=== PATIENT | female | born 1990 | race Caucasian/White ===

== ENCOUNTER 2018-01-23 14:11 | Emergency (ER) | payer BC, OTHER ==
[2018-01-23] MEDS ORDERED: DICYCLOMINE HCL 10 MG CAP ONE (15:20)
[2018-01-23] MEDS ORDERED: FAMOTIDINE 20 MG/2 ML VIAL IV ONE (15:21)
[2018-01-23] MEDS ORDERED: NA CHLORIDE 0.9% 1,000 ML ONE (15:21)
[2018-01-23] MEDS ORDERED: ONDANSETRON 4 MG/2 ML VIAL ONE (15:21)
--- NOTE | 2018-01-23 15:25 | RAD REPORT ---
EXAM DESCRIPTION: US - Abdomen Exam Limited - 01/23/2018 3:11 pm CLINICAL HISTORY: Abdominal pain. COMPARISON: None. FINDINGS: The gallbladder wall is not thickened. A gallstone is not seen. A 5 millimeter polyp is p resent The biliary tree is normal caliber. IMPRESSION: 5 millimeter gallbladder polyp
[2018-01-23 15:34] LABS: Absolute Lymphocytes (CBC) 2.5 K/uL (0.7-4.9); Absolute Monocytes 0.6 K/uL (0.1-1.3); Absolute Neutrophil 5.3 K/uL (1.8-8.0); Basophils % 0.3 % (0-1.3); Eosinophils % 1.3 % (0-4.4); Hematocrit 39.9 % (36.0-45.0); MCV 93.6 fL (80-100); MPV 9.2 fL (7.6-11.3); Monocytes % 7.5 % (3.3-12.3); RBC Red Blood Cell Count 4.26 M/uL (3.86-4.86)
[2018-01-23 15:40] LABS: Albumin 3.9 g/dL (3.4-5.0); Bilirubin Direct 0.1 mg/dL (0-0.2); Bilirubin Total 0.2 mg/dL (0.2-1.0); Potassium 3.6 mmol/L (3.5-5.1); Protein, Total 7.4 g/dL (6.4-8.2)
--- NOTE | 2018-01-23 16:42 | EDPHYS ---
Physician Documentation [facility] Name: Tadeo Cobos Age: 27 yrs Sex: Female : 1990 Arrival Date: 01/23/2018 Time: 14:13 Bed 16 Private MD: None, None ED Physician Michele Mukherjee HPI: 01/23 14:45 This 27 yrs old Female presents to ER via Ambulatory with complaints of cp Abdominal Pain. 14:45 The patient presents with abdominal pain in the epigastric area. cp 14:45 Onset: The symptoms/episode began/occurred this morning. cp 14:45 The symptoms do not radiate. Associated signs and symptoms: Pertinent positives: cp nausea, vomiting Sunday that has been controlled with Zofran, Pertinent negatives: constipation, diarrhea, fever, hematemesis. 14:45 The symptoms are described as crampy, squeezing. cp 14:45 Modifying factors: the symptoms are aggravated by pressure. cp Historical: - Allergies: 14:30 ambien; sg - Home Meds: 14:30 Synthroid Oral [Active]; sg - PMHx: 14:30 Hypothyroidism; Cardiomyopathy; sg - PSHx: 14:30 Breast Augmentation x2; Upper GI Corrective sx; sg - Immunization history:: Adult Immunizations up to date. - Social history:: Smoking status: Patient/guardian denies using tobacco. - Ebola Screening: : Patient negative for fever greater than or equal to 101.5 degrees Fahrenheit, and additional compatible Ebola Virus Disease symptoms Patient denies exposure to infectious person Patient denies travel to an Ebola-affected area in the 21 days before illness onset No symptoms or risks identified at this time. ROS: 14:50 Constitutional: Negative for body aches, chills, fever, poor PO intake. cp 14:50 Eyes: Negative for injury, pain, redness, and discharge. cp 14:50 ENT: Negative for drainage from ear(s), ear pain, sore throat, difficulty swallowing, difficulty handling secretions. 14:50 Cardiovascular: Negative for chest pain, edema, palpitations. 14:50 Respiratory: Negative for cough, shortness of breath, wheezing. 14:50 Abdomen/GI: Positive for abdominal pain, nausea, anorexia, of the epigastric area, Negative for vomiting, diarrhea, constipation, dysphagia, black/tarry stool, rectal bleeding. 14:50 Back: Negative for pain at rest, pain with movement, radiated pain. 14:50 : Negative for urinary symptoms. 14:50 Neuro: Negative for altered mental status, headache, weakness. 14:50 All other systems are negative. Exam: 15:02 Constitutional: The patient appears in no acute distress, alert, awake, cp non-diaphoretic, non-toxic, well developed, well nourished, uncomfortable. 15:02 Head/Face: Normocephalic, atraumatic. cp 15:02 Eyes: Periorbital structures: appear normal, Conjunctiva: normal, no exudate, no injection, Sclera: no appreciated abnormality, Lids and lashes: appear normal, bilaterally. 15:02 ENT: External ear(s): are unremarkable, Ear canal(s): are normal, clear, TM's: bulging, is not appreciated, bilaterally, dullness, bilaterally, erythema, is not appreciated, bilaterally, Nose: is normal, Mouth: Lips: moist, Oral mucosa: pink and intact, moist, Posterior pharynx: is normal, airway is patent, no erythema, no exudate. 15:02 Chest/axilla: Inspection: normal, Palpation: is normal, no crepitus, no tenderness. 15:02 Cardiovascular: Rate: bradycardic, Rhythm: regular, Heart sounds: murmur, not appreciated, rub, not appreciated, gallop, not appreciated, Edema: is not appreciated, JVD: is not appreciated. 15:02 Respiratory: the patient does not display signs of respiratory distress, Respirations: normal, no use of accessory muscles, no retractions, no splinting, no tachypnea, labored breathing, is not present, Breath sounds: are clear throughout, no decreased breath sounds, no stridor, no wheezing. 15:02 Abdomen/GI: Inspection: abdomen appears normal, Bowel sounds: active, all quadrants, Palpation: soft, in all quadrants, moderate abdominal tenderness, in the epigastric area, rebound tenderness, is not appreciated, voluntary guarding, is elicited in the epigastric area. 15:02 Back: pain, is absent, ROM is normal, CVA tenderness, is absent. 15:02 Musculoskeletal/extremity: Exam is negative for decreased range of motion, deformity, injury. 15:02 Skin: cellulitis, is not appreciated, no rash present. 15:02 Neuro: Orientation: to person, place \T\ time. Mentation: lucid, able to follow commands, Cerebellar function: is grossly normal, Motor: moves all fours, strength is normal, Sensation: no obvious gross deficits. Vital Signs: 14:30 BP 116 / 82; Pulse 59 MON; Resp 14 S; Temp 98.3(TE); Pulse Ox 100% on R/A; Pain 7/10; sg 15:40 BP 118 / 78; Pulse 53; Resp 16; Pulse Ox 98% on R/A; ph 16:35 BP 112 / 76; Pulse 52; Resp 18; Temp 97.9; Pulse Ox 100% on R/A; ph MDM: 14:25 Patient medically screened. cp 15:00 Differential diagnosis: gastritis, pancreatitis, Peptic Ulcer Disease, Perf. Duodenal cp Ulcer, Perf. Gastric Ulcer, Pyelonephritis, Ureterolithiasis, urinary tract infection. 16:40 Data reviewed: vital signs, nurses notes, lab test result(s), radiologic studies, cp ultrasound. 16:40 Counseling: I had a detailed discussion with the patient and/or guardian regarding: the cp historical points, exam findings, and any diagnostic results supporting the discharge/admit diagnosis, lab results, radiology results, to return to the emergency department if symptoms worsen or persist or if there are any questions or concerns that arise at home. Special discussion: Based on the patient's Hx, exam, and Dx evaluation, there is no indication for emergent surgery or inpatient Tx. It is understood by the patient/guardian that if the Sx's persist or worsen they need to return immediately for re-evaluation. 01/23 14:35 Order name: Amylase, Serum; Complete Time: 15:44 cp 01/23 14:35 Order name: Basic Metabolic Panel; Complete Time: 15:44 cp 01/23 14:35 Order name: CBC with Diff; Complete Time: 15:44 cp 01/23 14:35 Order name: Creatinine for Radiology; Complete Time: 15:44 cp 01/23 14:35 Order name: Hepatic Function; Complete Time: 15:44 cp 01/23 14:35 Order name: Lipase; Complete Time: 15:44 cp 01/23 14:35 Order name: Urine Microscopic Only cp 01/23 14:44 Order name: US Abdomen Limited; Complete Time: 15:44 cp 01/23 15:52 Order name: Urine Dipstick--Ancillary (enter results) 01/23 15:52 Order name: Urine --Ancillary (enter results) 01/23 14:35 Order name: Urine Test (obtain specimen); Complete Time: 15:48 cp 01/23 14:35 Order name: IV Saline Lock; Complete Time: 15:13 cp 01/23 14:35 Order name: Labs collected and sent; Complete Time: 15:13 cp 01/23 14:35 Order name: Urine Dipstick-Ancillary (obtain specimen); Complete Time: 15:48 cp Administered Medications: 15:30 Drug: Pepcid 20 mg Route: IVP; Site: left antecubital; ph 15:30 Drug: NS 0.9% 1000 ml Route: IV; Rate: 1 bolus; Site: left antecubital; ph 15:30 Drug: Zofran 4 mg Route: IVP; Site: left antecubital; ph 15:30 Drug: Bentyl 20 mg Route: PO; ph 17:15 Drug: GI Cocktail without - (Maalox Suspension 30 ml, Lidocaine Liquid 2 % 15 ph ml) Route: PO; Disposition: 01/23/18 16:42 Discharged to Home. Impression: Epigastric pain. - Condition is Stable. - Discharge Instructions: Gastritis, Adult. - Prescriptions for Bentyl 20 mg Oral Tablet - take 1 tablet by ORAL route every 6 hours As needed; 20 tablet. Protonix 40 mg Oral Tablet - take 1 tablet by ORAL route once daily; 30 tablet. Zofran 4 mg Oral Tablet - take 1 tablet by ORAL route every 12 hours As needed; 20 tablet. - Medication Reconciliation Form, Thank You Letter, Antibiotic Education, Prescription Opioid Use form. - Follow up: Saeid Paz MD; When: 2 - 3 days; Reason: Recheck today's complaints. - Problem is new. - Symptoms have improved. Addendum: 01/25/2018 07:24 Co-signature as Attending Physician, Michele Mukherjee MD I agree with the assessment and c grier plan of care. Signatures: Dispatcher [employer] Diego Flores RN RN sg Anderson, Corey, MD MD cha Hall, Patricia RN RN ph Michele Covarrubias PA PA cp Corrections: (The following items were deleted from the chart) 01/23 17:15 16:42 01/23/2018 16:42 Discharged to Home. Impression: Epigastric pain. Condition is ph Stable. Forms are Medication Reconciliation Form, Thank You Letter, Antibiotic Education, Prescription Opioid Use. Follow up: Saeid Paz; When: 2 - 3 days; Reason: Recheck today's complaints. Problem is new. Symptoms have improved. cp 01/24 15:43 01/23 14:35 This 27 yrs old Female presents to ER via Ambulatory with cp complaints of Abdominal Pain. cp
--- NOTE | 2018-01-23 16:42 | ER ---
Nurse's Notes [facility] Name: Tadeo Cobos Age: 27 yrs Sex: Female : 1990 Arrival Date: 01/23/2018 Time: 14:13 Bed 16 Private MD: None, None Diagnosis: Epigastric pain Presentation: 01/23 14:27 Presenting complaint: Patient states: Epigastric cramps and RUQ pain that began this sg morning, had recently finished a z-pack, prednisone and robitussionex for URI, reports nausea and vomiting that began on Sunday, has been controlled with Zofran OTD, until today she took a Promethazine PO, pt reports no change in condition. Transition of care: patient was not received from another setting of care. Onset of symptoms was January 23, 2018. Risk Assessment: Do you want to hurt yourself or someone else? Patient reports no desire to harm self or others. Initial Sepsis Screen: Does the patient meet any 2 criteria? No. Patient's initial sepsis screen is negative. Does the patient have a suspected source of infection? No. Patient's initial sepsis screen is negative. Care prior to arrival: None. 14:27 Method Of Arrival: Ambulatory sg 14:27 Acuity: AMINATA 3 sg Historical: - Allergies: 14:30 ambien; sg - Home Meds: 14:30 Synthroid Oral [Active]; sg - PMHx: 14:30 Hypothyroidism; Cardiomyopathy; sg - PSHx: 14:30 Breast Augmentation x2; Upper GI Corrective sx; sg - Immunization history:: Adult Immunizations up to date. - Social history:: Smoking status: Patient/guardian denies using tobacco. - Ebola Screening: : Patient negative for fever greater than or equal to 101.5 degrees Fahrenheit, and additional compatible Ebola Virus Disease symptoms Patient denies exposure to infectious person Patient denies travel to an Ebola-affected area in the 21 days before illness onset No symptoms or risks identified at this time. Screenin:11 Abuse screen: Denies threats or abuse. Denies injuries from another. Nutritional ph screening: No deficits noted. Tuberculosis screening: No symptoms or risk factors identified. Fall Risk None identified. Assessment: 15:01 General: Appears in no apparent distress. uncomfortable, slender, well groomed, ph Behavior is calm, cooperative, appropriate for age, Denies fever. Pain: Complains of pain in epigastric area Pain radiates to right upper quadrant and back Quality of pain is described as crampy, squeezing. Neuro: Level of Consciousness is awake, alert, obeys commands, Oriented to person, place, time, situation. Cardiovascular: Capillary refill < 3 seconds in bilateral fingers Patient's skin is warm and dry. Respiratory: Airway is patent Respiratory effort is even, unlabored, Respiratory pattern is regular, symmetrical. GI: Abdomen is flat, non-distended, Bowel sounds present X 4 quads. Abd is soft X 4 quads Abdomen is tender to palpation in epigastric area and right upper quadrant. Derm: Skin is intact, is healthy with good turgor, Skin is pink, warm \T\ dry. Musculoskeletal: Circulation, motion, and sensation intact. Range of motion: intact in all extremities. 16:15 Reassessment: Patient appears in no apparent distress at this time. Patient and/or ph family updated on plan of care and expected duration. Pain level reassessed. Patient is alert, oriented x 3, equal unlabored respirations, skin warm/dry/pink. 17:15 Reassessment: Patient appears in no apparent distress at this time. Patient and/or ph family updated on plan of care and expected duration. Pain level reassessed. Patient is alert, oriented x 3, equal unlabored respirations, skin warm/dry/pink. Pt d/c home w/ family Patient denies pain at this time. Patient states symptoms have improved. Vital Signs: 14:30 BP 116 / 82; Pulse 59 MON; Resp 14 S; Temp 98.3(TE); Pulse Ox 100% on R/A; Pain 7/10; sg 15:40 BP 118 / 78; Pulse 53; Resp 16; Pulse Ox 98% on R/A; ph 16:35 BP 112 / 76; Pulse 52; Resp 18; Temp 97.9; Pulse Ox 100% on R/A; ph ED Course: 14:13 Patient arrived in ED. sb2 14:13 None, None is Private Physician. sb2 14:25 Michele Covarrubias PA is PHCP. cp 14:25 Michele Mukherjee MD is Attending Physician. cp 14:29 Triage completed. sg 14:31 Arm band placed on. sg 15:01 Pat Mosquera, RN is Primary Nurse. ph 15:11 US Abdomen Limited In Process Unspecified. EDMS 15:11 Patient has correct armband on for positive identification. Bed in low position. Call ph light in reach. Side rails up X 1. Pulse ox on. NIBP on. Warm blanket given. 15:16 Initial lab(s) drawn, by me, sent to lab. Inserted saline lock: 22 gauge in left dh3 antecubital area, using aseptic technique. Blood collected. 16:38 No provider procedures requiring assistance completed. ph 16:41 Saeid Paz MD is Referral Physician. cp 17:15 IV discontinued, intact, bleeding controlled, No redness/swelling at site. Pressure ph dressing applied. Administered Medications: 15:30 Drug: Pepcid 20 mg Route: IVP; Site: left antecubital; ph 15:30 Drug: NS 0.9% 1000 ml Route: IV; Rate: 1 bolus; Site: left antecubital; ph 15:30 Drug: Zofran 4 mg Route: IVP; Site: left antecubital; ph 15:30 Drug: Bentyl 20 mg Route: PO; ph 17:15 Drug: GI Cocktail without - (Maalox Suspension 30 ml, Lidocaine Liquid 2 % 15 ph ml) Route: PO; Outcome: 16:42 Discharge ordered by MD. cp 17:15 Patient left the ED. ph 17:15 Discharged to home ambulatory, with family. ph 17:15 Condition: good 17:15 Discharge instructions given to patient, Instructed on discharge instructions, follow up and referral plans. medication usage, Demonstrated understanding of instructions, follow-up care, medications, Prescriptions given X 3. Signatures: Dispatcher [employer] EDMS Diego Galvan, RN RN Pat Mosquera, RN RN ph Michele Covarrubias, HARSH PA Latha Cleaning 3 Ofelia Eaton2 Corrections: (The following items were deleted from the chart) 19:31 16:35 BP 112 / 76; Pulse 52bpm; Resp 18bpm; Pulse Ox 100% RA; ph ph
[2018-01-23] MEDS ORDERED: MAGNES/ALUMIN/SIMET 30ML UCUP ONE (16:59)
[2018-01-23] MEDS ORDERED: LIDOCAINE VISCOUS 2% SOLN 15 ML UDC ONE (16:59)
[2018-01-23 17:00] LABS: Urine Bacteria <20 /HPF (<20); Urine Culture Reflex Order NOT NEEDED; Urine RBC <5 /HPF (NONE SEEN)
[2018-01-23 18:36] LABS: Urine Blood NEGATIVE (NEG); Urine Glucose NEGATIVE (NEG); Urine Protein NEGATIVE (NEG)
[2018-01-23] MEDS ORDERED: D50W 25 GM/50 ML SYRINGE IV ONE (19:04)
[2018-01-23] MEDS ORDERED: DEXAMETHASONE 10 MG/ML VIAL ONE (19:19)
== END 2018-01-23 17:15 | disposition home or self-care (01) ==
LOC: ER 14:11
DX: R10.13 Epigastric pain (principal); E03.9 Hypothyroidism, unspecified; Z88.8 Allergy status to other drugs, medicaments and biological substances; Z98.82 Breast implant status
CPT/HCPCS: 36415; 76705; 80048; 80076; 81003; 81015; 81025; 82150; 83690; 85025; 96374; 96375; 99284; J1100; J2405; J7030

== ENCOUNTER 2019-02-17 13:12 | Emergency (ER) | payer BC ==
--- OUTSIDE RECORDS SUMMARY | 2019-02-17 13:14 | XMS REPORT | Clinical Summary ---
:1990 Author Organization [facility] Address [address] [place] [address] Care Team Providers Name Role Phone Asked, No Pcp Primary Care Provider Unavailable Allergies Active Allergy Reactions Severity Noted Date Comments Zolpidem 08/04/2016 Per the patient it kept her awake Medications Medication Sig Dispensed Refills Start End Date Status Date PROAIR HFA 90 INHALE 2 0 Active mcg/actuation PUFFS BY 8 inhaler MOUTH EVERY 4 HOURS NEEDED FOR WHEEZING/COUG HUY levothyroxine 25 mcg on 3 0 Active (SYNTHROID, LEVOXYL) days of the 4 25 mcg tablet week (Mon, Wed, Fri) ivabradine HCl Take 2.5 mg 0 Active (CORLANOR ORAL) by mouth 2 (two) times a day. fludrocortisone Take by 0 Active acetate mouth. (FLUDROCORTISONE ORAL) flecainide TK 1 T PO BID 2 Active (TAMBOCOR) 50 MG 9 tablet ondansetron (ZOFRAN) Take 4 mg by 0 07/01/19 Discontinued 4 MG tablet mouth every 8 19 (Stop Taking at 12 (twelve) Discharge) hours as needed. pantoprazole Take 40 mg by 1 06/10/20 Discontinued (PROTONIX) 40 MG EC mouth daily. 8 18 tablet traMADol (ULTRAM) 50 Take 1 tablet 20 tablet 0 06/08/20 mg tablet (50 mg total) 8 18 by mouth every 6 (six) hours as needed for moderate pain for up to 30 days. acetaminophen Take 325 mg 0 07/01/19 Discontinued (TYLENOL) 325 MG by mouth 19 (Stop Taking at tablet every 6 (six) Discharge) hours as needed for fever. simethicone Chew 1 tablet 90 tablet 0 07/31/19 (MYLICON) 80 MG (80 mg total) 9 19 chewable tablet 3 (three) times a day for 30 days. docusate sodium Take 1 60 capsule 0 07/31/19 (COLACE) 100 MG capsule (100 9 19 capsule mg total) by mouth 2 (two) times a day for 30 days. ibuprofen Take 1 tablet 30 tablet 0 07/15/19 (ADVIL,MOTRIN) 600 (600 mg 9 19 MG tablet total) by mouth every 6 (six) hours as needed for mild pain for up to 14 days. Active Problems Problem Noted Date Menorrhagia with irregular cycle 06/28/2018 Encounters Date Type Specialty Care Team Description 08/14/2018 Telephone Gynecologic [facility] Membreno Oncology MD Harvey 08/13/2018 Office Visit Gynecologic [facility] Mem[facility]o Menorrhagia with Oncology MD Harvey irregular cycle 07/30/2018 Office Visit Gynecologic [facility] Mem[facility]o Menorrhagia with Oncology MD Harvey irregular cycle (Primary Dx) 07/29/2018 Telephone Gynecologic [facility] Membreno Oncology MD Harvey 07/09/2018 Office Visit Gynecologic [facility] Mem[facility]o Menorrhagia with Oncology MD Harvey irregular cycle (Primary Dx) 06/28/2018 Anesthesia Event Obstetrics and Jayy Kelleycaitlyn Gynecology MD Jenifer Wilson Kelly C., FAST FOOD SERVICES MANAGER 06/28/2018 Surgery Obstetrics and [facility] Membreno EXPLORATORY Gynecology MD Harvey LAPAROTOMY, TOTAL ABDOMINAL HYSTERECTOMY, BILATERAL SALPINGECTOMY, APPENDECTOMY 06/28/2018 - Hospital Encounter General Surgery Trin[facility] Membreno Menorrhagia with irregular cycle; 07/01/2018 MD Harvey Dysmenorrhea 06/21/2018 Telephone Gynecologic [facility] Oncology Arielle, RN 06/20/2018 Telephone Obstetrics and [place] Membreno Gynecology MD Harvey 06/19/2018 Telephone Gynecologic Carol Guevara, RN 06/10/2018 Hospital Encounter Radiology [facility] Membreno Pre-op testing MD Harvey 06/10/2018 Pre-Admit Testing Pre-Admission [facility] Membreno Pre-op testing Appointment Testing MD Harvey 06/10/2018 Clinical Support Gynecologic Pre-op testing Oncology (Primary Dx) 06/10/2018 Telephone Gynecologic [facility] Membreno Oncology MD Harvey 06/03/2018 Telephone Gynecologic [facility] Arielle, RN 05/20/2018 Telephone Gynecologic [facility] Arielle, RN 05/09/2018 Office Visit Gynecologic [facility] Membreno Menorrhagia with Oncology MD Harvey irregular cycle 04/30/2018 Office Visit Obstetrics and Per Medina Pelvic pain (Primary Dx); Gynecology MD Meera Adenomyosis 04/30/2018 Telephone Obstetrics and [place] Membreno Gynecology MD Harvey 04/23/2018 Telephone Obstetrics and Inessa Hill Gynecology MA 04/16/2018 Office Visit Obstetrics Per Hill Pelvic pain (Primary Dx); Gynecology MD Meera Dysmenorrhea; Cervical cancer screening 04/16/2018 Telephone Obstetrics Per Hill Gynecology MD Meera after 02/16/2018 Family History Medical History Relation Name Comments Endometriosis Maternal Grandmother Endometriosis Mother Fibrocystic breast disease Mother Endometriosis Paternal Aunt Relation Name Status Comments Maternal Grandmother Mother Paternal Aunt Social History Tobacco Use Types Packs/Day Years Used Date Never Smoker Smokeless Tobacco: Never Used Tobacco Cessation: Counseling Given: No Alcohol Use Drinks/Week oz/Week Comments Yes 5xs a year Sex Assigned at Date Recorded Not on file Job Start Date Occupation Industry Not on file Not on file Not on file Travel History Travel Start Travel End No recent travel history available. Last Filed Vital Signs Vital Sign Reading Time Taken Comments Blood Pressure 109/70 08/13/2018 11:37 AM DIFFERENTIAL SPECIALIST Pulse 63 08/13/2018 11:37 AM DIFFERENTIAL SPECIALIST Temperature 36.8 C (98.2 F) 07/01/2018 7:48 AM DIFFERENTIAL SPECIALIST Respiratory Rate 18 07/01/2018 9:34 AM DIFFERENTIAL SPECIALIST Oxygen Saturation 98% 07/01/2018 7:48 AM DIFFERENTIAL SPECIALIST Inhaled Oxygen Concentration - - Weight 47.6 kg (105 lb) 08/13/2018 11:37 AM DIFFERENTIAL SPECIALIST Height 160 cm (5' 3") 08/13/2018 11:37 AM DIFFERENTIAL SPECIALIST Body Mass Index 18.6 08/13/2018 11:37 AM DIFFERENTIAL SPECIALIST Plan of Treatment Date Type Specialty Care Team Description 02/26/2019 Office Visit Obstetrics and Gynecology Per Medina MD [address] [facility] [address] [place], [place] [id number] Health Maintenance Due Date Last Done Comments INFLUENZA VACCINE 01/23/2019 CERVICAL CANCER SCREENING 06/28/2021 06/28/2018, 04/16/2018 Procedures Procedure Name Priority Date/Time Associated Diagnosis Comments NJ AN ELECTIVE Routine 07/18/2018 11:34 AM ENDOTRACHEAL AIRWAY DIFFERENTIAL SPECIALIST Procedure Note - Bhavna Kelley MD - 07/18/2018 11:34 AM DIFFERENTIAL SPECIALIST Airway Performed by: Bhavna Kelley MD Authorized by: Bhavna Kelley MD Location: OR Urgency: Elective Difficult Airway: No Preoxygenated with 100% O2: Yes C-spine Precautions Maintained Throughout: Yes Mask Ventilation: Easy mask Final Airway Type: Endotracheal airway Final Endotracheal Airway: ETT Cuffed: Yes Technique Used: Direct laryngoscopy Devices/Methods Used in Placement: Intubating stylet Insertion Site: Oral Blade Type: Cardona Laryngoscope Blade/Videolaryngoscope Blade Size: 2 ETT Size (mm): 7.0 Cuff at minimum occlusion pressure: Yes Measured from: Lips Placement Verified by: CO2 detection, direct visualization and equal breath sounds Laryngoscopic view: Grade I - full view of glottis Rapid Sequence Induction (RSI): No Modified RSI: No Number of Attempts at Approach: 1 ESTIMATED GFR Routine 06/29/2018 4:48 AM DIFFERENTIAL SPECIALIST BASIC METABOLIC PANEL Routine 06/29/2018 4:48 AM DIFFERENTIAL SPECIALIST HEMOGLOBIN & HEMATOCRIT Routine 06/29/2018 4:48 AM DIFFERENTIAL SPECIALIST CYTOLOGY Routine 06/28/2018 3:00 PM DIFFERENTIAL SPECIALIST Results for this (NON-GYNECOLOGICAL) REQUEST procedure are in the results section. NJ AN ELECTIVE ENDOTRACHEAL Routine 06/28/2018 2:31 PM DIFFERENTIAL SPECIALIST AIRWAY Procedure Note - Jose Sellers CRNA - 06/28/2018 2:31 PM DIFFERENTIAL SPECIALIST ANESTHESIA INTUBATION Date/Time: 06/28/2018 1:54 PM Performed by: Jose Sellers CRNA Authorized by: Bhavna Kelley MD Location: OR Urgency: Elective Difficult Airway: No Resident/FAST FOOD SERVICES MANAGER/AA: Jose Sellers CRNA Performed by: resident/FAST FOOD SERVICES MANAGER/AA Preoxygenated with 100% O2: Yes Mask Ventilation: Easy mask Final Airway Type: Endotracheal airway Final Endotracheal Airway: ETT Cuffed: Yes Technique Used: Direct laryngoscopy Devices/Methods Used in Placement: Intubating stylet Insertion Site: Oral Blade Type: Narinder Laryngoscope Blade/Videolaryngoscope Blade Size: 3 ETT Size (mm): 7.0 Cuff at minimum occlusion pressure: Yes Measured from: Teeth ETT to Teeth (cm): 19 Placement Verified by: CO2 detection, direct visualization and equal breath sounds Laryngoscopic view: Grade I - full view of glottis Rapid Sequence Induction (RSI): No Modified RSI: No Number of Attempts at Approach: 1 LAPAROTOMY, 06/28/2018 1:44 Menorrhagia with EXPLORATORY PM DIFFERENTIAL SPECIALIST irregular cycle Dysmenorrhea SURGICAL PATHOLOGY Routine 06/28/2018 9:19 Results for REQUEST AM DIFFERENTIAL SPECIALIST this procedure are in the results section. ECG PRE/POST OP Routine 06/10/2018 5:14 Pre-op testing Results for PM DIFFERENTIAL SPECIALIST this procedure are in the results section. ESTIMATED GFR Routine 06/10/2018 4:53 Results for PM DIFFERENTIAL SPECIALIST this procedure are in the results section. HC COMPLETE BLD COUNT Routine 06/10/2018 4:53 Pre-op testing Results for W/AUTO DIFF PM DIFFERENTIAL SPECIALIST this procedure are in the results section. COMPREHENSIVE Routine 06/10/2018 4:53 Pre-op testing Results for METABOLIC PANEL PM DIFFERENTIAL SPECIALIST this procedure are in the results section. PARTIAL Routine 06/10/2018 4:53 Pre-op testing Results for THROMBOPLASTIN TIME PM DIFFERENTIAL SPECIALIST this procedure (PTT) are in the results section. PROTHROMBIN TIME WITH Routine 06/10/2018 4:53 Pre-op testing Results for INR PM DIFFERENTIAL SPECIALIST this procedure are in the results section. TYPE AND SCREEN Routine 06/10/2018 4:53 Pre-op testing Results for PM DIFFERENTIAL SPECIALIST this procedure are in the results section. HCG QUANTITATIVE, Routine 06/10/2018 4:53 Pre-op testing Results for SERUM PM DIFFERENTIAL SPECIALIST this procedure are in the results section. XR CHEST 2 VW Routine 06/10/2018 4:34 Pre-op testing Results for PM DIFFERENTIAL SPECIALIST this procedure are in the results section. CHLAMYDIA/N. Routine 04/16/2018 2:38 Results for GONORRHOEAE RNA, TMA PM CDT this procedure are in the results section. THINPREP TIS PAP Routine 04/16/2018 2:38 Results for REFLEX HPV MRNA E6/E7 PM CDT this procedure are in the results section. PAP W/AGE BASED Routine 04/16/2018 2:38 Pelvic pain Results for SCREENING PLUS CT/NG PM CDT Dysmenorrhea this procedure Cervical cancer screening are in the results section. URINALYSIS, AUTOMATED Routine 04/16/2018 2:34 Pelvic pain Results for WITH MICROSCOPY PM CDT Dysmenorrhea this procedure Cervical cancer screening are in the results section. URINE CULTURE Routine 04/16/2018 2:34 Pelvic pain Results for PM CDT Dysmenorrhea this procedure Cervical cancer screening are in the results section. after 02/16/2018 Results Estimated GFR (06/29/2018 4:48 AM DIFFERENTIAL SPECIALIST)Only the most recent of2 resultswithin the time period is included. Pathologist [facility] Estimated GFR >=90 mL/min/1.73 [facility] Comment: m2 HOSPITAL CatergoryUnitsInterpretation G1 >=90 Normal or high G2 60-89Mildly decreased [id number] to moderately decreased J6x18-43Vuexbkemzp to severely decreased G4 15-29Severely decreased G5 <15Kidney failure The eGFR was calculated using the Chronic Kidney Disease Epidemiology Collaboration (CKD-EPI) equation. Interpretation is based on recommendations of the National Kidney Foundation-Kidney Disease Outcomes Quality Initiative (NKF-KDOQI) published in 2014. Specimen Plasma specimen Performing Organization Address City/[facility] Centercode Phone Number [facility] DEPARTMENT OF PATHOLOGY AND [address] [place] [address] Hemoglobin & hematocrit (06/29/2018 4:48 AM DIFFERENTIAL SPECIALIST) Pathologist [facility] HGB 12.4 12.0 - 16.0 g/dL [facility] HCT 38.5 37.0 - 47.0 % [facility] Specimen Blood Performing Organization Address City/[facility]/Zipcode Phone Number [facility] DEPARTMENT OF PATHOLOGY AND [address] [place] [phone] Basic metabolic panel (06/29/2018 4:48 AM DIFFERENTIAL SPECIALIST) Pathologist [facility] Sodium 130 (L) 135 - 148 mEq/L [facility] Potassium 4.3 3.5 - 5.0 mEq/L [facility] Chloride 97 (L) 98 - 112 mEq/L [facility] CO2 20 (L) 24 - 31 mEq/L [facility] Anion gap 13@ANIO 7 - 15 mEq/L [facility] BUN 11 6 - 20 mg/dL [facility] Creatinine 0.70 0.50 - 0.90 mg/dL [facility] Glucose 131 (H) 65 - 99 mg/dL [facility] Calcium 8.8 8.3 - 10.2 mg/dL [facility] Specimen Plasma specimen Performing Organization Address City/[facility] Centercode Phone Number [facility] DEPARTMENT OF PATHOLOGY AND [address] [place] [phone] GENOMIC MEDICINE [address] [address] Cytology (non-gynecological) request (06/28/2018 3:00 PM DIFFERENTIAL SPECIALIST) [facility] DEPARTMENT OF PATHOLOGY AND GENOMIC MEDICINE Cytology See link below [facility] DEPARTMENT OF (non-gynecological) for PDF Lab PATHOLOGY AND report Report GENOMIC MEDICINE Result status This is Final [facility] DEPARTMENT OF Report for PATHOLOGY AND [id number] GENOMIC MEDICINE Specimen Performing Organization Address [facility] Phone Number [facility] DEPARTMENT OF PATHOLOGY AND [address] [place] [address] GENOMIC MEDICINE Surgical pathology request (06/28/2018 9:19 AM DIFFERENTIAL SPECIALIST) [facility] DEPARTMENT OF PATHOLOGY AND GENOMIC MEDICINE Surgical pathology See link below [facility] DEPARTMENT OF report for PDF Lab PATHOLOGY AND Report GENOMIC MEDICINE Result status This is Final [facility] DEPARTMENT OF Report for PATHOLOGY AND [id number] GENOMIC MEDICINE Specimen Performing Organization Address [facility] Centercode Phone Number [facility] DEPARTMENT OF PATHOLOGY AND [address] [place] [address] GENOMIC MEDICINE ECG Pre/Post Op (06/10/2018 5:14 PM DIFFERENTIAL SPECIALIST) Ventricular rate 48 [facility] Atrial rate 48 [facility] NJ interval 114 [facility] QRSD interval 82 [facility] QT interval 426 [facility] QTC interval 380 [facility] MUSE P axis 1 -21 [facility] MUSE QRS axis 1 15 [facility] T wave axis 54 [facility] MUSE EKG impression Marked sinus [facility] MUSE bradycardia with sinus arrhythmia-Cannot rule out Anterior infarct , age undetermined-Abnormal ECG-No previous ECGs available-Electronicall y Signed By Jam Ny MD ([id number]) on 06/11/2018 7:29:17 PM Specimen Narrative Performed At Performing Organization Address City/[facility]/Zipcode Phone Number [facility] MUSE [address] [place] [phone] Partial thromboplastin time, activated (06/10/2018 4:53 PM DIFFERENTIAL SPECIALIST) Pathologist [facility] PTT 27.6 23.0 - 36.0 [facility] Comment: [facility] PTT therapeutic range for unfractionated heparin is 61.0-112.0 seconds which corresponds to Anti-Xa 0.3-0.7 U/ml. Specimen Blood Performing Organization Address City/[facility]/Zipcode Phone Number [facility] DEPARTMENT OF PATHOLOGY AND [address] [place] [phone] Prothrombin time with INR (06/10/2018 4:53 PM DIFFERENTIAL SPECIALIST) [facility] Prothrombin time 13.6 11.5 - 14.5 [facility] INR 1.1 MANY Comment: YARSANI The International Normalized Ratio (INR) is a therapeutic HOSPITAL monitoring tool for patients who are stable on oral anticoagulant therapy. An INR of 2.0-3.0 is suggested for deep vein thrombosis/pulmonary embolism. Specimen Blood Performing Organization Address [facility] Centercony Phone Number [facility] DEPARTMENT OF PATHOLOGY AND [address] [place] [phone] [place] [phone] CBC with platelet and differential (06/10/2018 4:53 PM DIFFERENTIAL SPECIALIST) [facility] WBC 7.29 4.50 - 11.00 [facility] RBC 4.18 (L) 4.20 - 5.50 [facility] HGB 13.1 12.0 - 16.0 [facility] g/dL [facility] HCT 40.6 37.0 - 47.0 % [facility] MCV 97.1 82.0 - 100.0 [facility] MCH 31.3 27.0 - 34.[address] [facility] MCHC 32.3 31.0 - 37.0 [facility] g/dL [facility] RDW - SD 43.9 37.0 - 55.[address] [facility] MPV 11.5 8.8 - 13.[address] [facility] Platelet count 291 150 - 400 k/uL [facility] Nucleated RBC 0.00 /[address] [facility] Neutrophils 60.0 39.0 - 69.0 % [facility] Lymphocytes 32.4 25.0 - 45.0 % [facility] Monocytes 5.3 0.0 - 10.0 % [facility] Eosinophils 1.6 0.0 - 5.0 % [facility] Basophils 0.4 0.0 - 1.0 % [facility] Immature granulocytes 0.3Comment: 0.0 - 1.0 % [facility] "[facility] granulocytes" (promyelocytes , myelocytes, metamyelocytes ) Specimen Blood Performing Organization Address City/State/Zipcode Phone Number [facility] DEPARTMENT OF PATHOLOGY AND [address] [place] [address] Type and screen (06/10/2018 4:53 PM DIFFERENTIAL SPECIALIST) Pathologist [facility] ABO grouping B [facility] Rh type POS [facility] Antibody screen (gel) NEG [facility] Specimen Blood Performing Organization Address City/[facility]/Zipcode Phone Number [facility] DEPARTMENT OF PATHOLOGY AND [address] [place], [place] [phone] hCG quantitative, serum (06/10/2018 4:53 PM DIFFERENTIAL SPECIALIST) Pathologist [facility] hCG quantitative, <1 0 - 5 mIU/mL [facility] serum Comment: HOSPITAL Reference range for HCG Quant applies to males and non- females. Post Menopausal 0.0 - 8.1 mIU/mL Specimen Plasma specimen Performing Organization Address City/[facility]/Zipcode Phone Number [facility] DEPARTMENT OF PATHOLOGY AND [address] [place], [place] [phone] Comprehensive metabolic panel (06/10/2018 4:53 PM DIFFERENTIAL SPECIALIST) Pathologist [facility] Sodium 140 135 - 148 [facility] mEq/L [facility] Potassium 3.6 3.5 - 5.0 [facility] mEq/L [facility] Chloride 103 98 - 112 mEq/L [facility] CO2 22 (L) 24 - 31 mEq/L [facility] Anion gap 15@ANIO 7 - 15 mEq/L [facility] BUN 15 6 - 20 mg/dL [facility] Creatinine 0.80 0.50 - 0.90 [facility] mg/dL HOSPITAL Glucose 82 65 - 99 mg/dL [facility] Calcium 9.6 8.3 - 10.2 [facility] mg/dL [facility] Protein 7.6 6.3 - 8.3 g/dL [facility] Comment: HOSPITAL 4.6-7.0 g/dL 1 week 4.4-7.6 g/dL 7 months-1year5.1-7.3 g/dL 1-2 years5.6-7.5 g/dL >3 years6.0-8.0 g/dL 18-150 6.3-8.3 g/dL Albumin 4.1 3.5 - 5.0 g/dL [facility] A/G ratio 1.2 0.7 - 3.[address] [facility] Alkaline phosphatase 45 35 - 104 U/L [facility] AST 21 10 - 35 U/L [facility] ALT 10 5 - 50 U/L [facility] Total bilirubin 0.4 0.0 - 1.2 [facility] mg/dL [facility] Specimen Plasma specimen Performing Organization Address City/State/Zipcode Phone Number [facility] DEPARTMENT OF PATHOLOGY AND [address] [place] [address] GENOMIC MEDICINE [address] [address] XR Chest 2 Vw (06/10/2018 4:34 PM DIFFERENTIAL SPECIALIST) Specimen Narrative Performed At EXAMINATION:XR CHEST 2 VW RADIANT CLINICAL HISTORY:Z01.818 Encounter for other preprocedural examination, pre op IMPRESSION: Heart and mediastinum are normal. There is no acute infiltrate or effusion. Bones are osteopenic. There are bilateral breast implants. No significant change from June 28, 2010. [facility]-[id number] Procedure Note Interface, Radiology Results Incoming - 06/10/2018 4:42 PM DIFFERENTIAL SPECIALIST EXAMINATION: XR CHEST 2 VW CLINICAL HISTORY: Z01.818 Encounter for other preprocedural examination, pre op IMPRESSION: Heart and mediastinum are normal. There is no acute infiltrate or effusion. Bones are osteopenic. There are bilateral breast implants. No significant change from June 28, 2010. [facility]-[id number] Performing Organization Address City/[facility]/Zipcode Phone Number [facility] [address] [place] [address] PAP W/AGE BASED SCREENING PLUS CT/NG (04/16/2018 2:38 PM CDT) Comment [facility] Comment: DIAGNOSTICS-NANY II This order for age-based cervical cancer and STI screening follows ACOG guidelines(PB 168, 140, ALU090). See individual assays for performing site location. Specimen Swab Resulting Agency Comment Performing Organization Information: Site ID: [id number] Name: [facility] Address: [address] [place] [id number] Director: Dr. Jim Diaz Performing Organization Address [facility] Centercony Phone Number [facility] [employer] [place] [address] CHLAMYDIA/N. GONORRHOEAE RNA, TMA (04/16/2018 2:38 PM CDT) Chlamydia NOT DETECTED NOT DETECTED [facility] trachomatis RNA, MANY TMA Neisseria NOT DETECTED NOT DETECTED [facility] gonorrhoeae RNA, MANY TMA (Always message) [employer] Comment: MANY This test was performed using the APTIMA COMBO2 Assay ([employer] The analytical performance characteristics of this assay, when used to test SurePath specimens have been determined by [facility]. Specimen Resulting Agency Comment Performing Organization Information: Site ID: [id number] Name: [facility] Address: [address] [place] [address] Director: Sharon Osuna Performing Organization Address [facility] Centercode Phone Number [employer] [address] [address] THINPREP TIS PAP REFLEX HPV mRNA E6/E7 (04/16/2018 2:38 PM CDT) Clinical information None given [facility] MANY Date of last menstrual NONE GIVEN [facility] period [facility] MANY Prev. pap: NONE GIVEN [facility] MANY Prev. bx: NONE GIVEN [facility] MANY Source None given [facility] MANY Statement of adequacy [facility] Comment: DIAGNOSTICS Satisfactory for evaluation. MANY Endocervical/transformation zone component present. Age and/or menstrual status not provided Interpretation/result: Comment: Negative for [facility] intraepithelial [facility] lesion or malignancy. MANY Comment [facility] Comment: DIAGNOSTICS This Pap test has been evaluated with computer [employer] assisted technology. [employer] Commerce Architect [facility] Comment: DIAGNOSTICS AMT, CT(ASCP) MANY CT screening location: [address], [place] [id number] Comment [facility] Comment: DIAGNOSTICS EXPLANATORY NOTE: MANY The Pap is a screening test for cervical cancer. It is not a diagnostic test and is subject to false negative and false positive results. It is most reliable when a satisfactory sample, regularly obtained, is submitted with relevant clinical findings and history, and when the Pap result is evaluated along with historic and current clinical information. Specimen Resulting Agency Comment Performing Organization Information: Site ID: [id number] Name: [facility] Address: [address] [place] [phone] Director: Sharon Osuna Performing Organization Address City/State/Zipcode Phone Number Dmailer [place] [phone] Urinalysis, automated with microscopy (04/16/2018 2:34 PM CDT) Color, UA YELLOW YELLOW [facility] MANY Appearance CLEAR CLEAR [facility] MANY Specific gravity, 1.020 1.001 - 1.035 [facility] urine MANY pH, urine 6.0 5.0 - 8.0 [facility] MANY Glucose, urine NEGATIVE NEGATIVE [facility] MANY Bilirubin, UA NEGATIVE NEGATIVE [facility] MANY Ketones, UA NEGATIVE NEGATIVE [facility] MANY Occult blood, urine NEGATIVE NEGATIVE [facility] MANY Protein, UA NEGATIVE NEGATIVE [facility] MANY Nitrite, UA NEGATIVE NEGATIVE [facility] MANY Leukocyte esterase, NEGATIVE NEGATIVE [facility] UA MANY WBC, UA NONE SEEN < OR=5 /HPF [facility] MANY RBC, UA NONE SEEN < OR=2 /HPF [facility] MANY Squamous epithelial NONE SEEN < OR=5 /HPF [facility] cells, UA MANY Bacteria, UA NONE SEEN NONE SEEN /HPF [facility] MANY Hyaline casts, UA NONE SEEN NONE SEEN /LPF [facility] MANY Specimen Urine Resulting Agency Comment Performing Organization Information: Site ID: [id number] Name: [facility] Address: [address] [place] [phone] Director: Sharon Osuna Performing Organization Address City/State/[facility] [place] [address] Urine culture (04/16/2018 2:34 PM CDT) Urine culture SEE NOTE [facility] Comment: MARY KAY CULTURE, URINE, ROUTINE MICRO NUMBER:[id number] TEST STATUS: FINAL SPECIMEN SOURCE: URINE SPECIMEN QUALITY:ADEQUATE RESULT:No Growth Specimen Urine Resulting Agency Comment Performing Organization Information: Site ID: [id number] Name: [facility] Address: [address] [place] [phone] Director: Sharon Osuna Performing Organization Address City/State/[facility] Phone Number ANDREI [facility] MANY [address] [place] [phone] after 02/16/2018 Advance Directives For more information, please contact: [phone] Type Date Recorded 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
[2019-02-17] MEDS ORDERED: KETOROLAC 30 MG/ML INJ ONE (14:09)
[2019-02-17 14:15] LABS: Absolute Lymphocytes (CBC) 2.3 K/uL (0.7-4.9); Basophils % 0.4 % (0-1.3); Hematocrit 41.5 % (36.0-45.0); Lymphocytes % 27.5 % (15.3-44.8); RBC Red Blood Cell Count 4.47 M/uL (3.86-4.86)
[2019-02-17 14:28] LABS: Urine Blood NEGATIVE (NEG); Urine Glucose NEGATIVE (NEG); Urine Protein NEGATIVE (NEG); Urine Specific Gravity 1.025 (1.005-1.030)
[2019-02-17 14:28] LABS: Urine Bacteria 20-50 /HPF (<20); Urine Culture Reflex Order REFLEXED; Urine Mucus 1+ /HPF (NONE SEEN); Urine RBC <5 /HPF (NONE SEEN)
[2019-02-17 14:31] LABS: Albumin 4.1 g/dL (3.4-5.0); Bilirubin Direct 0.1 mg/dL (0-0.2); Bilirubin Total 0.6 mg/dL (0.2-1.0); Potassium 3.5 mmol/L (3.5-5.1); Protein, Total 7.9 g/dL (6.4-8.2)
--- NOTE | 2019-02-17 15:12 | RAD REPORT ---
EXAM DESCRIPTION: CT - Abdomen Pelvis W Contrast - 02/17/2019 2:50 pm CLINICAL HISTORY: ABD PAIN COMPARISON: CT study March 2018 TECHNIQUE: Biphasic, helical CT imaging of the abdomen and pelvis was performed following 100 ml non -ionic IV contrast. Oral contrast was given. All CT scans are performed using dose optimization technique as appropriate and may include automated exposure control or mA/KV adjustment according to patient size. FINDINGS: No suspicious findings in the lung bases. The liver, spleen, and pancreas show no suspicious findings. Gallbladder and biliary tree are also wi thout suspicious finding. Symmetric renal function is seen with no hydronephrosis or suspicious renal mass. No pyelonephritis o r acute parenchymal process. No bladder abnormalities. No adrenal abnormalities. Pelvic floor phlebol iths are present. No dilated bowel loops or bowel wall thickening. Appendix is not well visualized. No indirect evidenc e for appendicitis. No free air or pneumatosis. Small quantity of free fluid is present in the depend ent portion of the pelvis. This is within physiologic limits. A small involuting right ovarian cyst i s present. Left ovary is unremarkable. Uterus has been removed. No hernia, mass or bulky lymphadenop athy. No suspicious bony findings. IMPRESSION: Contrast-enhanced CT abdomen and pelvis imaging shows no emergent finding. Nonacute findings detailed in the body of the report.
--- NOTE | 2019-02-17 16:41 | RAD REPORT ---
EXAM DESCRIPTION: US - Pelvis Complete - 02/17/2019 4:27 pm CLINICAL HISTORY: Abdominal pain, vaginal bleeding. Preliminary findings provided at the time of the study. COMPARISON: CT study February 17 TECHNIQUE: Transabdominal pelvic sonography was performed. FINDINGS: Uterus is absent. Left ovary shows normal blood flow within the stroma. No dominant solid or cystic left ovarian or left adnexal finding. No abnormal fluid. Right ovary shows several small follicles. The suspected involuting cyst on the CT study is not clear ly seen and may be paraovarian and partially obscured by bowel. A worrisome adnexal finding is not richter spected. IMPRESSION: Hysterectomy change with no left ovarian or left adnexal abnormality. No dominant right ovarian or right adnexal process. The suspected involuting cyst on CT imaging is no t clearly defined sonographically. Significant right adnexal process is not suspected.
--- NOTE | 2019-02-17 16:50 | ER ---
Nurse's Notes [facility] Name: Tadeo oCbos Age: 28 yrs Sex: Female : 1990 Arrival Date: 02/17/2019 Time: 13:15 Bed 20 Private MD: Diagnosis: Pelvic and perineal pain Presentation: 02/17 13:26 Presenting complaint: Patient states: lower abd pain X 2-3 weeks, radiates to low back, iw dull aching pressure, UA this morning was negative at clinic, denies vomiting or diarrhea. Transition of care: patient was not received from another setting of care. Onset of symptoms was February 03, 2019. Risk Assessment: Do you want to hurt yourself or someone else? Patient reports no desire to harm self or others. Initial Sepsis Screen: Does the patient meet any 2 criteria? No. Patient's initial sepsis screen is negative. Does the patient have a suspected source of infection? No. Patient's initial sepsis screen is negative. Care prior to arrival: None. 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 - Social history:: Smoking status: Patient/guardian denies using tobacco. - Ebola Screening: : Patient negative for fever greater than or equal to 101.5 degrees Fahrenheit, and additional compatible Ebola Virus Disease symptoms Patient denies exposure to infectious person Patient denies travel to an Ebola-affected area in the 21 days before illness onset No symptoms or risks identified at this time. Screenin:13 Abuse screen: Denies threats or abuse. Denies injuries from another. Nutritional jl7 screening: No deficits noted. Tuberculosis screening: No symptoms or risk factors identified. Fall Risk IV access (20 points). Total Carlos Fall Scale indicates No Risk (0-24 pts). Assessment: 14:06 General: Appears in no apparent distress. uncomfortable, Behavior is calm, cooperative, jl7 appropriate for age. Pain: Complains of pain in low back area, right lower quadrant and left lower quadrant. Neuro: Level of Consciousness is awake, alert, obeys commands, Oriented to person, place, time, situation. Cardiovascular: Patient's skin is warm and dry. Respiratory: Airway is patent Respiratory effort is even, unlabored, Respiratory pattern is regular, symmetrical. 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 Derm: Skin is pink, warm \T\ dry. 15:00 Reassessment: Patient appears in no apparent distress at this time. Patient and/or jl7 family updated on plan of care and expected duration. Pain level reassessed. Patient is alert, oriented x 3, equal unlabored respirations, skin warm/dry/pink. Patient states feeling better. Patient states symptoms have improved. 16:00 Reassessment: Patient appears in no apparent distress at this time. No changes from jl7 previously documented assessment. Patient and/or family updated on plan of care and expected duration. Pain level reassessed. Patient is alert, oriented x 3, equal unlabored respirations, skin warm/dry/pink. Vital Signs: 13:29 BP 132 / 85; Pulse 74; Resp 16; Temp 99.4; Pulse Ox 100% on R/A; Weight 48.08 kg; iw Height 5 ft. 3 in. (160.02 cm); Pain 5/10; 15:24 BP 119 / 72; Pulse 52; Resp 14; Temp 97.2(TE); Pulse Ox 100% on R/A; mh5 17:00 BP 110 / 75; Pulse 56; Resp 16 S; Pulse Ox 100% on R/A; jl7 13:29 Body Mass Index 18.78 (48.08 kg, 160.02 cm) ED Course: 13:15 Patient arrived in ED. mr 13:28 Triage completed. iw 13:29 Arm band placed on. iw 13:33 Dequan Yin MD is Attending Physician. gs 13:47 Rima Mcleod RN is Primary Nurse. jl7 14:13 Patient has correct armband on for positive identification. Bed in low position. Call jl7 light in reach. Side rails up X 1. Pulse ox on. NIBP on. Warm blanket given. 14:13 Initial lab(s) drawn, by me, sent to lab. Urine collected: clean catch specimen, clear. jl7 Inserted saline lock: 22 gauge in left antecubital area, using aseptic technique. Blood collected. 14:54 CT Abd/Pelvis - IV Contrast Only In Process Unspecified. EDMS 16:32 US Pelvis Complete In Process Unspecified. EDMS 16:59 No provider procedures requiring assistance completed. IV discontinued, intact, jl7 bleeding controlled, No redness/swelling at site. Pressure dressing applied. Administered Medications: 14:30 Drug: TORadol - Ketorolac 15 mg Route: IVP; Site: right antecubital; jl7 15:00 Follow up: Response: No adverse reaction; Pain is decreased jl7 Outcome: 16:48 Discharge ordered by MD. greene 16:59 Discharged to home ambulatory. jl7 16:59 Condition: stable 16:59 Discharge instructions given to patient, Instructed on discharge instructions, follow up and referral plans. Demonstrated understanding of instructions, follow-up care. 17:03 Patient left the ED. jl7 Signatures: Dispatcher [employer] Chantal Brown Irene, Kaylie Beauchamp RN [facility] Rima Mcleod RN RN jl7 Dequan Yin MD MD gs
--- NOTE | 2019-02-17 16:50 | EDPHYS ---
Physician Documentation [facility] Name: Tadeo Cobos Age: 28 yrs Sex: Female : 1990 Arrival Date: 02/17/2019 Time: 13:15 Bed 20 Private MD: ED Physician Dequan Yin HPI: 02/17 17:07 This 28 yrs old Female presents to ER via Ambulatory with complaints of gs Abdominal Pain, Back Pain. 17:07 The patient presents with abdominal pain in the lower abdomen. Onset: The gs symptoms/episode began/occurred 2 week(s) ago. 17:07 The symptoms radiate to back. Associated signs and symptoms: Pertinent negatives: gs nausea and vomiting. The symptoms are described as crampy, dull. Modifying factors: The symptoms are alleviated by nothing, the symptoms are aggravated by nothing. Severity of pain: At its worst the pain was moderate in the emergency department the pain has improved mildly. The patient has experienced similar episodes in the past, a few times. The patient has not recently seen a physician. 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 - Social history:: Smoking status: Patient/guardian denies using tobacco. - Ebola Screening: : Patient negative for fever greater than or equal to 101.5 degrees Fahrenheit, and additional compatible Ebola Virus Disease symptoms Patient denies exposure to infectious person Patient denies travel to an Ebola-affected area in the 21 days before illness onset No symptoms or risks identified at this time. ROS: 17:07 All other systems are negative. gs 17:07 Cardiovascular: Negative for chest pain. gs 17:07 Respiratory: Negative for shortness of breath. 17:07 : Negative for difficulty urinating, vaginal discharge. Exam: 17:07 Head/Face: Normocephalic, atraumatic. Eyes: Pupils equal round and reactive to light, gs extra-ocular motions intact. Lids and lashes normal. Conjunctiva and sclera are non-icteric and not injected. Cornea within normal limits. Periorbital areas with no swelling, redness, or edema. ENT: Nares patent. No nasal discharge, no septal abnormalities noted. Tympanic membranes are normal and external auditory canals are clear. Oropharynx with no redness, swelling, or masses, exudates, or evidence of obstruction, uvula midline. Mucous membranes moist. Neck: Trachea midline, no thyromegaly or masses palpated, and no cervical lymphadenopathy. Supple, full range of motion without nuchal rigidity, or vertebral point tenderness. No Meningismus. Chest/axilla: Normal chest wall appearance and motion. Nontender with no deformity. No lesions are appreciated. Cardiovascular: Regular rate and rhythm with a normal S1 and S2. No gallops, murmurs, or rubs. Normal PMI, no JVD. No pulse deficits. Respiratory: Lungs have equal breath sounds bilaterally, clear to auscultation and percussion. No rales, rhonchi or wheezes noted. No increased work of breathing, no retractions or nasal flaring. Skin: Warm, dry with normal turgor. Normal color with no rashes, no lesions, and no evidence of cellulitis. MS/ Extremity: Pulses equal, no cyanosis. Neurovascular intact. Full, normal range of motion. Neuro: Awake and alert, GCS 15, oriented to person, place, time, and situation. Cranial nerves II-XII grossly intact. Motor strength 5/5 in all extremities. Sensory grossly intact. Cerebellar exam normal. Normal gait. 17:07 Constitutional: The patient appears alert, awake. 17:07 Abdomen/GI: Palpation: moderate abdominal tenderness, in the right lower quadrant and gs left lower quadrant. 17:07 Back: CVA tenderness, that is mild, is noted bilaterally. Vital Signs: 13:29 BP 132 / 85; Pulse 74; Resp 16; Temp 99.4; Pulse Ox 100% on R/A; Weight 48.08 kg; iw Height 5 ft. 3 in. (160.02 cm); Pain 5/10; 15:24 BP 119 / 72; Pulse 52; Resp 14; Temp 97.2(TE); Pulse Ox 100% on R/A; mh5 17:00 BP 110 / 75; Pulse 56; Resp 16 S; Pulse Ox 100% on R/A; jl7 13:29 Body Mass Index 18.78 (48.08 kg, 160.02 cm) iw MDM: 13:43 Patient medically screened. 17:07 Differential diagnosis: non-specific abd pain, Ovarian Torsion, urinary tract gs infection. Data reviewed: vital signs, nurses notes, lab test result(s), radiologic studies. Counseling: I had a detailed discussion with the patient and/or guardian regarding: the historical points, exam findings, and any diagnostic results supporting the discharge/admit diagnosis, lab results, radiology results, the need for outpatient follow up. Response to treatment: the patient's symptoms have markedly improved after treatment, and as a result, I will discharge patient. 02/17 13:46 Order name: Basic Metabolic Panel; Complete Time: 15:22 02/17 13:46 Order name: CBC with Diff; Complete Time: 15:22 02/17 13:46 Order name: Hepatic Function; Complete Time: 15:22 02/17 13:46 Order name: Lipase; Complete Time: 15:22 02/17 13:46 Order name: Urine Microscopic Only; Complete Time: 15:22 02/17 14:20 Order name: Urine Dipstick--Ancillary (enter results); Complete Time: 15:22 02/17 13:46 Order name: IV Saline Lock; Complete Time: 14:06 02/17 13:46 Order name: Labs collected and sent; Complete Time: 14:06 02/17 13:46 Order name: Urine Test (obtain specimen); Complete Time: 14:06 02/17 13:46 Order name: CT Abd/Pelvis - IV Contrast Only; Complete Time: 15:37 02/17 14:20 Order name: Urine --Ancillary (enter results); Complete Time: 15:22 02/17 14:34 Order name: Urine Culture EDID 02/17 15:38 Order name: US Pelvis Complete; Complete Time: 16:48 02/17 13:46 Order name: Urine Dipstick-Ancillary (obtain specimen); Complete Time: 14:06 Administered Medications: 14:30 Drug: TORadol - Ketorolac 15 mg Route: IVP; Site: right antecubital; jl7 15:00 Follow up: Response: No adverse reaction; Pain is decreased jl7 Disposition: 02/17/19 16:48 Discharged to Home. Impression: Pelvic and perineal pain. - Condition is Stable. - Discharge Instructions: Pelvic Pain, Female. - Medication Reconciliation Form, Thank You Letter, Antibiotic Education, Prescription Opioid Use form. - Follow up: Private Physician; When: 2 - 3 days; Reason: Re-evaluation by your physician. Signatures: Dispatcher [employer] EDNikky Aponte RN RN Rima Mcleod RN RN jl7 Dequan Yin MD MD gs Corrections: (The following items were deleted from the chart) 17:03 16:48 02/17/2019 16:48 Discharged to Home. Impression: Pelvic and perineal pain. jl7 Condition is Stable. Forms are Medication Reconciliation Form, Thank You Letter, Antibiotic Education, Prescription Opioid Use. Follow up: Private Physician; When: 2 - 3 days; Reason: Re-evaluation by your physician. gs
== END 2019-02-17 17:03 | disposition home or self-care (01) ==
LOC: ER 13:12
DX: R10.2 Pelvic and perineal pain (principal); E03.9 Hypothyroidism, unspecified; I42.9 Cardiomyopathy, unspecified; Z98.82 Breast implant status; Z88.8 Allergy status to other drugs, medicaments and biological substances
CPT/HCPCS: 87088; 85025; 87086; 80048; 36415; 81025; 80076; 83690; 74177; 76856; 96374; 99284; Q9967; 81003; 81015